=== PATIENT | female | born 1940 | race Caucasian/White ===

== ENCOUNTER → 2017-08-09 | Outpatient (CLI) | payer OTHER ==
--- NOTE | 2017-08-09 13:07 | RADRPT ---
EXAM DATE/TIME: 08/09/2017 09:52 [place] COMPARISON : No previous studies available for comparison. INDICATIONS : Patient with a history of left renal mass, consult for cryoablation. This patient had a CT examination of the abdomen at [facility] on July 11, 2017 which rev eals a 2.5 cm solid mass arising exophytically from the lateral lower pole cortex of the left kidney. 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 The lesion does appear amenable to cryoablation t reatment. We will schedule her in the near future. Thanks very much for asking us to assist in the care of this patient. Loco Schmitt MD on August 09, 2017 at 13:00 Board Certified Radiologist. This report was verified electronically.
== END ==
LOC: HRAD 09:48
PROVIDERS: ATTEND Urology
DX: N28.89 Other specified disorders of kidney and ureter (principal)

== ENCOUNTER 2017-08-28 08:19 | Day surgery (SDC) | payer MEDICARE ==
[~2017-08-28] VITALS: Ht 157.5 cm; Wt 89.1 kg
[2017-08-28 08:35] VITALS: BP 181/98; PULSE 63; RESP 20; TEMP 97.8; O2SAT 97
[2017-08-28] MEDS ORDERED: ALBU0.63 NEB (08:39)
[2017-08-28] MEDS ORDERED: BIOT10TA PO (08:40)
[2017-08-28] MEDS ORDERED: ASCO500T PO (08:40)
[2017-08-28] MEDS ORDERED: FURO20TA PO (08:41)
[2017-08-28] MEDS ORDERED: APIX5TAB PO (08:41)
[2017-08-28] MEDS ORDERED: LEVO75TA3 PO (08:42)
[2017-08-28] MEDS ORDERED: LISI-515 PO (08:42)
[2017-08-28] MEDS ORDERED: METO25TA3 PO (08:43)
[2017-08-28] MEDS ORDERED: VENTAER INH (08:44)
[2017-08-28] MEDS ORDERED: MONT10TA4 PO (08:44)
[2017-08-28] MEDS ORDERED: FLUT1INH7 INH (08:45)
[2017-08-28 09:32] LABS: PROTHROMBIN TIME - PATIENT 10.1 SEC (9.8-11.6)
[2017-08-28] MEDS ORDERED: CHLORHEXIDINE GLUCONATE 2 % 1 PACK (2 CLOTHS) TOPICAL PRN (09:45)
[2017-08-28] MEDS ORDERED: POVIDONE IODINE 5% (ANTISEPSIS KIT) 4 APPLICATIONS EACH NARE PRN (09:45)
[2017-08-28] MEDS ORDERED: SODIUM CHLORID 0.9% 500 ML IV PRN (09:45)
[2017-08-28] MEDS ORDERED: METOPROLOL TARTRATE 25 MG TAB PO PRN (09:45)
[2017-08-28] MEDS ORDERED: LACTATED RINGER'S 1000 ML IV PRN (09:45)
[2017-08-28] MEDS ORDERED: SODIUM CHLOR 0.9% 1000 ML INJ 1,000 ML IV SCH (10:00)
[2017-08-28] MEDS ORDERED: LEVOFLOXACIN 500 MG PREMIX INJ 100 ML IV SCH (11:15)
--- NOTE | 2017-08-28 11:20 | EKG ---
Date Performed: 08/28/2017 Time Performed: 09:11:44 PTAGE: 77 years EKG: Sinus rhythm MINIMAL VOLTAGE CRITERIA FOR LVH, CONSIDER NORMAL VARIANT BORDERLINE ECG NO PREVIOUS TRACING DOCTOR: Matt Wilder Interpretating Date/Time 08/28/2017 11:19:21
[2017-08-28] MEDS ORDERED: DEXAMETHASONE SOD PHOS 4 MG/ML VIAL IV ONE (12:00)
[2017-08-28] MEDS ORDERED: PHENYLEPH/NS 1000 MCG/10 ML SYR IV ONE (12:00)
[2017-08-28] MEDS ORDERED: GLYCOPYRROLATE 1 MG/5 ML SYRINGE IV PUSH ONE (12:00)
[2017-08-28] MEDS ORDERED: NEOSTIGMINE 5 MG/5 ML SYRINGE IV PUSH ONE (12:00)
[2017-08-28] MEDS ORDERED: PROPOFOL 200 MG/20 ML AMP IV ONE (12:00)
[2017-08-28] MEDS ORDERED: ePHEDrine/NS 25 MG/5 ML SYRINGE IV ONE (12:00)
[2017-08-28] MEDS ORDERED: ONDANSETRON HCL 4 MG/2 ML VIAL IV ONE (12:00)
[2017-08-28] MEDS ORDERED: LIDOCAINE HCL 1% PF 5 ML SYRINGE OTHER ONE (12:00)
[2017-08-28] MEDS ORDERED: ROCURONIUM INJ 50 MG/5 ML SYRINGE IV PUSH ONE (12:00)
[2017-08-28] MEDS ORDERED: VASOPRESSIN 20 UNITS/ML VIAL (IVTITR) ONE (12:50)
[2017-08-28] MEDS ORDERED: DO NOT ADM ANY ANTICOAGULANT DRUGS PRN (14:45)
--- NOTE | 2017-08-28 15:27 | PD.RAD ---
Post CT Procedure Prog Note Pre Procedure Diagnosis: (1) Cancer of left kidney Post Procedure Diagnosis: (1) Cancer of left kidney Procedure Date: Aug 28, 2017 Supervising Radiologist: Loco Schmitt Estimated blood loss: none Anesthesia: General Plan of Activity Patient to Unit: PACU Patient Condition: Good See PACS Report for procedural detail/treatment Biopsy Imaging Guidance: CT Side: Left Biopsy Procedure: Kidney Additional Detail: cryoablation Loco Schmitt MD Aug 28, 2017 15:27
[2017-08-28] MEDS ORDERED: oxyCODONE/ACETAMINOPHEN 5 MG/325 MG TAB PO PRN (15:30)
--- NOTE | 2017-08-28 15:47 | RADRPT ---
EXAM DATE/TIME: 08/28/2017 12:33 INDICATIONS : Left renal mass, biopsy proven renal cell carcinoma Anesthesia and pain control was provided by the Anesthesia department. DEVICE(S): 1.) Cryoablation probe <<1.7 x4 MEDICAL HISTORY : Hypertension. Congestive heart failure. SURGICAL HISTORY : None. ENCOUNTER: Initial ACUITY: 1 day PAIN SCORE: 0/10 LOCATION: Left flank PROCEDURE : 1. CT guided cryoablation. Under sterile conditions and using aseptic technique with CT guidance the mass was localized and sati sfactory approach was taken to access the lesion. Using automated exposure control and adjustment of the mA and/or kV according to patient size, radiation dose was kept as low as reasonably achievable to obtain optimal diagnostic quality images. DICOM format image data is available electronically for review and comparison. [employer] Cryoprobes were employed using percutaneous technique employing the prescribed probes. A freeze-thaw, freeze-thaw technique was employed and serial imaging demonstrated an ice ball encomp assing the entire lesion. Post procedure images demonstrate expected postoperative changes without e vidence of hematoma. CONCLUSION: Uncomplicated cryoablation of left renal mass as above. Loco Schmitt MD on August 28, 2017 at 15:40 Board Certified Radiologist. This report was verified electronically.
[2017-08-28 16:16] VITALS: BP 115/69; PULSE 61; RESP 18; TEMP 97.6; O2SAT 96
[2017-08-28 16:44] VITALS: BP 129/53; PULSE 62; RESP 17; O2SAT 95
[2017-08-28 17:14] VITALS: BP_SYST 127; BP_SYST 130; BP_DIAS 56; BP_DIAS 72; PULSE 74; PULSE 78; RESP 18; O2SAT 97
[2017-08-28 17:40] VITALS: BP 132/57; PULSE 77; RESP 19; O2SAT 98
== END 2017-08-28 17:50 | disposition home or self-care (01) ==
LOC: HSDC 08:19 → HRIP 08:23 → HSDC 17:50
PROVIDERS: ATTEND Urology
DX: C64.2 Malignant neoplasm of left kidney, except renal pelvis (principal); R94.31 Abnormal electrocardiogram [ECG] [EKG]; Z79.01 Long term (current) use of anticoagulants
CPT/HCPCS: 50593; 77013; 85610; 85730; 93005; C1830; C2618; J1956; J3010; J7120; J1100; J2370; J2405; J2710

== ENCOUNTER 2017-09-04 13:19 | Day surgery (SDC) | payer MEDICARE ==
[2017-09-04 14:39] LABS: AUTOMATED NEUTROPHIL # 2.9 TH/MM3 (1.8-7.7); BASOPHIL % 0.8 % (0.0-2.0); EOSINOPHIL # 0.3 TH/MM3 (0-0.4); EOSINOPHIL % 5.5 % (0.0-4.0); HEMATOCRIT 32.8 % (35.0-46.0); HEMO FLAGS DIFF FINAL; HEMOGLOBIN 11.3 GM/DL (11.6-15.3); LYMPH % 30.4 % (9.0-44.0); LYMPHOCYTE # 1.7 TH/MM3 (1.0-4.8); MEAN CELL VOLUME 88.8 FL (80.0-100.0); MEAN CORPUSCULAR HEMOGLOBIN 30.7 PG (27.0-34.0); MEAN CORPUSCULAR HGB CONC 34.5 % (32.0-36.0); MEAN PLATELET VOLUME 7.8 FL (7.0-11.0); MONO % 12.2 % (0.0-8.0); MONOCYTE # 0.7 TH/MM3 (0-0.9); NEUT % 51.1 % (16.0-70.0); PLATELET COUNT 290 TH/MM3 (150-450); RED BLOOD COUNT 3.69 MIL/MM3 (4.00-5.30); RED CELL DISTRIBUTION WIDTH 13.5 % (11.6-17.2); WHITE BLOOD COUNT 5.7 TH/MM3 (4.0-11.0)
== END 2017-09-04 15:50 | disposition home or self-care (01) ==
LOC: HROP 13:19 → HRIP 13:23 → HROP 15:50
DX: N28.89 Other specified disorders of kidney and ureter (principal); Z98.890 Other specified postprocedural states
CPT/HCPCS: 85025